=== PATIENT | male | born 1945 | race Caucasian/White ===

== ENCOUNTER 2019-12-14 13:03 | Outpatient (CLI) | payer MEDICARE, BC ==
[~2019-12-14] VITALS: Ht 185.4 cm; Wt 90.7 kg
[2019-12-14] MEDS ORDERED: IRON PO (14:15)
[2019-12-14] MEDS ORDERED: ROSU5TAB PO (14:15)
[2019-12-14] MEDS ORDERED: ESOM40CA49 PO (14:15)
[2019-12-14] MEDS ORDERED: DULO-31 PO (14:15)
[2019-12-14] MEDS ORDERED: LISI10TA4 PO (14:15)
[2019-12-14 14:45] LABS: BASOPHILS # (AUTO) 0.1 X10'3 (0-0.2); EOSINOPHILS # (AUTO) 0.1 X10'3 (0-0.9); EOSINOPHILS % (AUTO) 2.5 % (0-6); LYMPHOCYTES # (AUTO) 1.1 X10'3 (1.1-4.8); LYMPHOCYTES % (AUTO) 19.3 % (21-51); MEAN CORPUSCULAR HEMOGLOBIN 32.9 PG (27.0-31.0); MEAN CORPUSCULAR HGB CONC 34.1 g/dL (33.0-36.5); MEAN CORPUSCULAR VOLUME 96.3 FL (78-98); MEAN PLATELET VOLUME 6.9 FL (7.4-10.4); MONOCYTES # (AUTO) 0.4 X10'3 (0-0.9); MONOCYTES % (AUTO) 6.4 % (2-12); NEUTROPHILS % (AUTO) 70.8 % (42-75); PRE OP HEMATOCRIT 29.9 % (42.0-52.0); RED CELL DISTRIBUTION WIDTH 14.8 % (11.5-14.5)
[2019-12-14 14:55] LABS: PRE OP INR 1.1 INR; PRE OP PROTIME 11.8 SECONDS (9.0-12.0)
[2019-12-14 14:57] LABS: ALBUMIN 3.4 G/DL (3.4-5.0); ALBUMIN/GLOBULIN RATIO 0.8 (1.1-1.5); ALKALINE PHOSPHATASE 157 IU/L (46-116); BLOOD UREA NITROGEN 14 MG/DL (7-18); BUN/CREATININE RATIO 9.3 (5.4-32.0); CALCIUM 8.6 MG/DL (8.5-10.1); CHLORIDE 103 MMOL/L (99-107); CREATININE 1.51 MG/DL (0.60-1.10); PRE OP ALT 34 U/L (30-65); PRE OP ANION GAP 9 (8-16); PRE OP AST 49 U/L (10-37); PRE OP POTASSIUM 3.9 MMOL/L (3.4-5.1); PRE OP SODIUM 139 MMOL/L (135-145); TOTAL CARBON DIOXIDE 26.7 MMOL/L (24-32); TOTAL PROTEIN 7.7 G/DL (6.4-8.2); eGFR 45 ML/MIN
[2019-12-14 15:04] LABS: PRE OP GLUCOSE 378 MG/DL (70-104)
[2019-12-14 15:45] LABS: PRE OP HEMOGLOBIN 10.2 g/dL (14.0-17.9); PRE OP PLATELET COUNT 90 X10'3 (140-440)
[2019-12-14 16:29] LABS: HEMOGLOBIN A1C 6.7 % (4.5-6.2)
[2019-12-20] MEDS ORDERED: ringers solution, lacted 1,000 ML IV SCH (05:00)
[2019-12-20] MEDS ORDERED: famotidine 20mg tablet PO ONE (05:30)
[2019-12-20] MEDS ORDERED: tranexamic acid 1gm/0.7% sal. 100 ML IV ONE (05:30)
[2019-12-20] MEDS ORDERED: vancomycin 1,500 MG in NS 500ml IV soln IV ONE (05:30)
[2019-12-20] MEDS ORDERED: clindamycin-Cleocin 900mg/D5W 50 ML IV ONE (05:30)
[2020-01-05] MEDS ORDERED: GLIM2TAB6 PO (08:36)
== END 2019-12-14 23:59 | disposition home or self-care (01) ==
LOC: PRE-OP 13:03 → EDSTATUS 12-20 10:30
PROVIDERS: ATTEND Orthopaedic Surgery
DX: M17.11 Unilateral primary osteoarthritis, right knee (principal); M25.561 Pain in right knee; D64.9 Anemia, unspecified; I73.9 Peripheral vascular disease, unspecified; Z53.09 Procedure and treatment not carried out because of other contraindication; Z88.0 Allergy status to penicillin; Z11.59 Encounter for screening for other viral diseases
CPT/HCPCS: 36415; 80053; 83036; 85025; 85610; 85730; 86885; 86900; 86901; 86920; 87081; 87635

== ENCOUNTER 2020-01-06 10:58 | Inpatient (IN) | payer MEDICARE, BC ==
[~2020-01-06] VITALS: Ht 185.4 cm; Wt 90.7 kg
[2020-01-06] VITALS (18 sets, daily range): BP systolic 98–180; BP diastolic 52–81
[~2020-01-06 10:58] MED LIST: DULO-31 PO; ESOM40CA49 PO; GLIM2TAB6 PO; IRON PO; LISI10TA4 PO; ROSU5TAB PO; clindamycin-Cleocin 900mg/D5W 50 ML IV ONE; famotidine 20mg tablet PO ONE; ringers solution, lacted 1,000 ML IV SCH; tranexamic acid 1gm/0.7% sal. 100 ML IV ONE; vancomycin 1,500 MG in NS 500ml IV soln IV ONE
[2020-01-06] MEDS ORDERED: ceFAZolin 1000mg inj ONE (11:46)
[2020-01-06 12:50] LABS: BASOPHILS % (AUTO) 0.9 % (0-1); EOSINOPHILS # (AUTO) 0.1 X10'3 (0-0.9); EOSINOPHILS % (AUTO) 2.7 % (0-6); HEMOGLOBIN 9.4 g/dl (14.0-17.9); LYMPHOCYTES # (AUTO) 0.6 X10'3 (1.1-4.8); LYMPHOCYTES % (AUTO) 19.9 % (21-51); MEAN CORPUSCULAR HEMOGLOBIN 33.4 PG (27.0-31.0); MEAN CORPUSCULAR HGB CONC 34.7 g/dL (33.0-36.5); MEAN CORPUSCULAR VOLUME 96.4 FL (78-98); MONOCYTES # (AUTO) 0.2 X10'3 (0-0.9); MONOCYTES % (AUTO) 5.1 % (2-12); NEUTROPHILS # (AUTO) 2.3 X10'3 (1.8-7.7); NEUTROPHILS % (AUTO) 71.4 % (42-75); PLATELET COUNT 69 X10'3 (140-440); RED CELL DISTRIBUTION WIDTH 14.9 % (11.5-14.5); WHITE BLOOD COUNT 3.3 X10'3 (4.5-11.0)
[2020-01-06] MEDS ORDERED: tetracaine 1% (10mg/ml) pres. free inj. ONE (12:57)
[2020-01-06] MEDS ORDERED: MIDAZolam 5mg/5ml vial ONE (12:59)
[2020-01-06] MEDS ORDERED: fentaNYL/PF 50MCG/1 ML 2ML syringe ONE (12:59)
[2020-01-06 13:01] LABS: ALANINE AMINOTRANSFERASE 27 U/L (12-78); ALBUMIN 3.3 G/DL (3.4-5.0); ALBUMIN/GLOBULIN RATIO 0.9 (1.1-1.5); ALKALINE PHOSPHATASE 120 IU/L (46-116); ANION GAP 9 (8-16); ASPARTATE AMINO TRANSFERASE 34 U/L (10-37); BILIRUBIN,TOTAL 0.8 MG/DL (0.1-1.0); BLOOD UREA NITROGEN 15 MG/DL (7-18); BUN/CREATININE RATIO 11.2 (5.4-32.0); CALCIUM 8.7 MG/DL (8.5-10.1); CHLORIDE 109 MMOL/L (99-107); CREATININE 1.34 MG/DL (0.60-1.10); GLUCOSE 105 MG/DL (70-104); POTASSIUM 3.9 MMOL/L (3.5-5.1); SODIUM 143 MMOL/L (135-145); TOTAL CARBON DIOXIDE 24.8 MMOL/L (24-32); TOTAL PROTEIN 6.9 G/DL (6.4-8.2); eGFR 52 ML/MIN
[2020-01-06 13:08] LABS: PARTIAL THROMBOPLASTIN TIME 27 SECONDS (22-32)
[2020-01-06] MEDS ORDERED: ringers solution, lacted 1,000 ML IV SCH (13:31)
[2020-01-06] MEDS ORDERED: ondansetron/PF 4mg/2ml inj IV PRN ×2 (13:35→15:55)
[2020-01-06] MEDS ORDERED: morphine 2 MG/ML inj. syringe IV PRN (13:35)
[2020-01-06] MEDS ORDERED: ROPIVAcaine 0.2% (10 MG/5 ML) BOLUS INJECTION ADDCANAL PRN (13:35)
[2020-01-06] MEDS ORDERED: morphine 4 MG/ML inj SYRINge IV PRN (13:35)
[2020-01-06] MEDS ORDERED: meperidine/PF 25mg/ml syringe IV PRN ×3 (13:35)
[2020-01-06] MEDS ORDERED: proCHLORperazine 10 MG/2 ml inj IV PRN (13:35)
[2020-01-06] MEDS ORDERED: propofol inj 20 ML IV ONE (13:43)
[2020-01-06] MEDS ORDERED: ROPIVAcaine 0.5% (5mg/ml) 30ml vial ONE (15:33)
[2020-01-06] MEDS ORDERED: magnesium hydroxide 30ml (MOM) UD suspension PO PRN (15:55)
[2020-01-06] MEDS ORDERED: diphenhydrAMINE 25mg capsule PO PRN ×2 (15:55)
[2020-01-06] MEDS ORDERED: acetaminophen 325mg tablet PO PRN (15:55)
[2020-01-06] MEDS ORDERED: bisacodyl 10mg suppository rectal RC PRN (15:55)
--- NOTE | 2020-01-06 15:57 | NUR ---
Received from OR via , accompanied by Anesthesiologist DR WEBSTER and report given by Anesthesiolgist. AWAKENS TO VOICE. VITALS STABLE. DRESSING DI. SENSATION AT THE UMBILICUS. ANGEL WITH CLEAR URINE.
[2020-01-06] MEDS ORDERED: insulin Lispro (HumaLOG) vial - multi-dose SQ SCH (16:15)
[2020-01-06] MEDS ORDERED: glucagon, human recombinant 1mg kit SUBCUT PRN (16:15)
[2020-01-06] MEDS ORDERED: dextrose ORAL solution 15 GM/59 ML bottle PO PRN ×2 (16:15)
[2020-01-06] MEDS ORDERED: MESSAGE TO PHARMACY PO ONE (16:15)
[2020-01-06] MEDS ORDERED: dextrose 50%-water 50ml dispensing syringe IV PRN ×2 (16:15)
--- NOTE | 2020-01-06 17:17 | NUR ---
Report called to receiving nurse. Transferred via BED Belongings . Special Issues communicated to receiving nurse.AWAKE AND ORIENTED. VITALS STABLE. DRESSING DI. JEB PAIN. TO ORTHO RM [id number] AT THIS TIME.
[2020-01-06] MEDS: CLINDAmcin 900mg/NS 50ml IVPB 50 ML IV SCH ×2 (17:20→23:10)
[2020-01-06] MEDS: potassium Cl 20mEq in NS 1,000 ML IV SCH ×2 (17:20→19:40)
[2020-01-06] MEDS: aspirin 81mg tablet.DR PO SCH (17:30)
--- NOTE | 2020-01-06 17:30 | NUR ---
ASSUMED CARE, RECEIVED REPORT FROM RTOY MEDRANO. PATIENT RESTING COMFORTABLY, POST OP VS STARTED. WILL CONTINUE TO MONITOR.
--- NOTE | 2020-01-06 18:10 | NUR ---
Problems reprioritized. Patient report given, questions answered & plan of care reviewed with SYLVIE MEDRANO.
[2020-01-06] MEDS: ROPIVAcaine 0.2%/PF PUMP/bolus 550 ML ADDCANAL SCH ×2 (19:00→22:43)
[2020-01-06] MEDS: HYDROmorphone inj. 0.5 MG/0.5 ML DISP.SYRIN IV PRN ×2 (19:05→23:11)
[2020-01-06] MEDS ORDERED: vancomycin/NS 1 GM ADD-VANTAGE 250 ML IV SCH (20:00)
[2020-01-06] MEDS: HYDROcodone/acetaminophen 10/325mg tab PO PRN (20:32)
[2020-01-06] MEDS: sennosides 8.6mg tablet PO SCH (20:32)
[2020-01-06] MEDS: insulin glargine (Lantus) pen - multi-dose SQ SCH (21:00)
[2020-01-07] VITALS (14 sets, daily range): BP systolic 128–170; BP diastolic 51–77
[2020-01-07] MEDS: HYDROcodone/acetaminophen 10/325mg tab PO PRN ×4 (01:26→19:00)
--- NOTE | 2020-01-07 06:13 | NUR ---
Patient in room ORTHO 4013. I have received report from SYLVIE MEDRANO and had the opportunity to ask questions and assume patient care.
--- NOTE | 2020-01-07 06:14 | NUR ---
Problems reprioritized. Patient report given, questions answered & plan of care reviewed with MARCELA Eduardo.
--- NOTE | 2020-01-07 06:52 | NUR ---
urine was dark yellow with consolidated matter floating in urine. Addendum: 01/07/20 at 0653 by Deanne SAL Amended: Links added.
--- NOTE | 2020-01-07 06:55 | NUR ---
up for PT Addendum: 01/07/20 at 0656 by Deanne SAL Amended: Links added.
[2020-01-07 06:56] LABS: BASOPHILS % (AUTO) 0.7 % (0-1); EOSINOPHILS # (AUTO) 0.1 X10'3 (0-0.9); EOSINOPHILS % (AUTO) 2.3 % (0-6); HEMOGLOBIN 7.3 g/dl (14.0-17.9); LYMPHOCYTES # (AUTO) 0.6 X10'3 (1.1-4.8); LYMPHOCYTES % (AUTO) 14.4 % (21-51); MEAN CORPUSCULAR HGB CONC 34.8 g/dL (33.0-36.5); MEAN CORPUSCULAR VOLUME 97.7 FL (78-98); MEAN PLATELET VOLUME 7.4 FL (7.4-10.4); MONOCYTES # (AUTO) 0.3 X10'3 (0-0.9); MONOCYTES % (AUTO) 8.2 % (2-12); NEUTROPHILS # (AUTO) 3.2 X10'3 (1.8-7.7); NEUTROPHILS % (AUTO) 74.4 % (42-75); PLATELET COUNT 65 X10'3 (140-440); RED BLOOD COUNT 2.16 X10'6 (4.70-6.10); RED CELL DISTRIBUTION WIDTH 14.7 % (11.5-14.5); WHITE BLOOD COUNT 4.2 X10'3 (4.5-11.0)
[2020-01-07 07:04] LABS: HEMATOCRIT 21.1 % (42.0-52.0)
[2020-01-07 07:27] LABS: ANION GAP 8 (8-16); CHLORIDE 108 MMOL/L (99-107); SODIUM 141 MMOL/L (135-145); TOTAL CARBON DIOXIDE 24.6 MMOL/L (24-32)
[2020-01-07] MEDS: duloxetine 30mg CAPSULE.DR PO SCH (07:39)
[2020-01-07] MEDS: aspirin 81mg tablet.DR PO SCH ×2 (07:40→17:16)
[2020-01-07] MEDS: pantoprazole 40mg Tablet.DR PO SCH (07:40)
[2020-01-07] MEDS: lisinopril 10 MG tablet PO SCH ×2 (07:43→12:03)
[2020-01-07] MEDS: potassium Cl 20mEq in NS 1,000 ML IV SCH (07:44)
[2020-01-07] MEDS: CLINDAmcin 900mg/NS 50ml IVPB 50 ML IV SCH (07:45)
[2020-01-07] MEDS: HYDROmorphone inj. 0.5 MG/0.5 ML DISP.SYRIN IV PRN (07:47)
--- NOTE | 2020-01-07 12:44 | NUR ---
Patient requested to walk. Patient was walked down way [address] and back to bed. Elevated heels and applied SCD's. Addendum: 01/07/20 at 1246 by Deanne SAL Amended: Links added.
--- NOTE | 2020-01-07 18:06 | NUR ---
Problems reprioritized. Patient report given, questions answered & plan of care reviewed with SYLVIE MEDRANO.
[2020-01-07] MEDS: sennosides 8.6mg tablet PO SCH (20:56)
[2020-01-07] MEDS: insulin glargine (Lantus) pen - multi-dose SQ SCH (20:56)
--- NOTE | 2020-01-08 00:37 | NUR ---
Problems reprioritized. Patient report given, questions answered & plan of care reviewed with MARCELA Cao.
--- NOTE | 2020-01-08 00:37 | NUR ---
Patient in room ORTHO 4013. I have received report from MARCELA Hernandez and had the opportunity to ask questions and assume patient care.
[2020-01-08] MEDS: HYDROcodone/acetaminophen 10/325mg tab PO PRN ×4 (00:38→20:33)
[2020-01-08] MEDS: potassium Cl 20mEq in NS 1,000 ML IV SCH ×2 (02:22→15:27)
[2020-01-08 06:00] VITALS: BP 121/58
--- NOTE | 2020-01-08 06:00 | NUR ---
Patient in room ORTHO 4013. I have received report from Kiley and had the opportunity to ask questions and assume patient care.
--- NOTE | 2020-01-08 06:27 | NUR ---
Problems reprioritized. Patient report given, questions answered & plan of care reviewed with MARCELA Dhillon.
[2020-01-08 06:29] LABS: BASOPHILS % (AUTO) 0.7 % (0-1); EOSINOPHILS # (AUTO) 0.1 X10'3 (0-0.9); EOSINOPHILS % (AUTO) 2.1 % (0-6); HEMATOCRIT 25.5 % (42.0-52.0); HEMOGLOBIN 8.9 g/dl (14.0-17.9); LYMPHOCYTES # (AUTO) 0.9 X10'3 (1.1-4.8); LYMPHOCYTES % (AUTO) 18.5 % (21-51); MEAN CORPUSCULAR HEMOGLOBIN 33.1 PG (27.0-31.0); MEAN CORPUSCULAR HGB CONC 34.8 g/dL (33.0-36.5); MEAN CORPUSCULAR VOLUME 95.2 FL (78-98); MEAN PLATELET VOLUME 7.1 FL (7.4-10.4); MONOCYTES # (AUTO) 0.5 X10'3 (0-0.9); MONOCYTES % (AUTO) 9.8 % (2-12); NEUTROPHILS # (AUTO) 3.5 X10'3 (1.8-7.7); NEUTROPHILS % (AUTO) 68.9 % (42-75); PLATELET COUNT 54 X10'3 (140-440); RED BLOOD COUNT 2.68 X10'6 (4.70-6.10); RED CELL DISTRIBUTION WIDTH 15.2 % (11.5-14.5)
[2020-01-08 06:59] LABS: CREATININE 1.16 MG/DL (0.60-1.10); eGFR 62 ML/MIN
[2020-01-08 07:24] LABS: PLATELET ESTIMATE DECREASED
[2020-01-08] MEDS: duloxetine 30mg CAPSULE.DR PO SCH (07:34)
[2020-01-08] MEDS: pantoprazole 40mg Tablet.DR PO SCH (07:34)
[2020-01-08] MEDS: aspirin 81mg tablet.DR PO SCH ×2 (07:34→17:30)
[2020-01-08] MEDS: lisinopril 10 MG tablet PO SCH (07:38)
[2020-01-08 10:48] VITALS: BP 105/83
--- NOTE | 2020-01-08 14:30 | NUR ---
Problems reprioritized. Patient report given, questions answered & plan of care reviewed with Jennifer.
[2020-01-08 15:30] VITALS: BP 161/75
[2020-01-08] MEDS: ROPIVAcaine 0.2%/PF PUMP/bolus 550 ML ADDCANAL SCH (16:33)
--- NOTE | 2020-01-08 18:05 | NUR ---
Problems reprioritized. Patient report given, questions answered & plan of care reviewed with DENNIS MEDRANO.
--- NOTE | 2020-01-08 18:33 | NUR ---
Patient in room [facility] 346. I have received report from Alesha MEDRANO and had the opportunity to ask questions and assume patient care.
[2020-01-08 20:00] VITALS: BP 147/68
[2020-01-08] MEDS: sennosides 8.6mg tablet PO SCH (20:32)
[2020-01-08] MEDS: insulin glargine (Lantus) pen - multi-dose SQ SCH (21:00)
[2020-01-09] VITALS: BP 136/64
[2020-01-09 05:12] LABS: BASOPHILS % (AUTO) 0.4 % (0-1); EOSINOPHILS # (AUTO) 0.1 X10'3 (0-0.9); HEMATOCRIT 25.2 % (42.0-52.0); HEMOGLOBIN 8.6 g/dl (14.0-17.9); LYMPHOCYTES # (AUTO) 0.8 X10'3 (1.1-4.8); LYMPHOCYTES % (AUTO) 16.4 % (21-51); MEAN CORPUSCULAR HGB CONC 34.3 g/dL (33.0-36.5); MEAN CORPUSCULAR VOLUME 96.3 FL (78-98); MEAN PLATELET VOLUME 7.5 FL (7.4-10.4); MONOCYTES # (AUTO) 0.4 X10'3 (0-0.9); MONOCYTES % (AUTO) 8.5 % (2-12); NEUTROPHILS # (AUTO) 3.4 X10'3 (1.8-7.7); NEUTROPHILS % (AUTO) 72.7 % (42-75); PLATELET COUNT 53 X10'3 (140-440); RED BLOOD COUNT 2.62 X10'6 (4.70-6.10); RED CELL DISTRIBUTION WIDTH 14.6 % (11.5-14.5); WHITE BLOOD COUNT 4.7 X10'3 (4.5-11.0)
--- NOTE | 2020-01-09 06:16 | NUR ---
Problems reprioritized. Patient report given, questions answered & plan of care reviewed with DIANE MEDRANO.
--- NOTE | 2020-01-09 06:44 | NUR ---
Patient in room [facility] 346. I have received report from Isadora MEDRANO and had the opportunity to ask questions and assume patient care.
[2020-01-09 07:28] VITALS: BP 129/64
[2020-01-09 07:48] VITALS: BP 129/46
[2020-01-09] MEDS: pantoprazole 40mg Tablet.DR PO SCH (09:13)
[2020-01-09] MEDS: aspirin 81mg tablet.DR PO SCH (09:13)
[2020-01-09] MEDS: duloxetine 30mg CAPSULE.DR PO SCH (09:14)
[2020-01-09] MEDS: lisinopril 10 MG tablet PO SCH (09:14)
[2020-01-09 12:28] VITALS: BP 117/76
--- NOTE | 2020-01-09 12:58 | NUR ---
F/u: Pt aware of new DM DX and pending discharge today per RN. Pt seen by RD for written/verbal DM ed w/ RD contact information provided. Pt reports not knowing exact diet guidelines but also refused verbal ed at this time. RD encouraged pt to contact dietitian's office if further questions. Addendum: 01/09/20 at [address] Amended: Links added.
--- NOTE | 2020-01-09 13:17 | NUR ---
Patient discharged on nursing end. All discharge education completed. Patient has an appointment for follow up on Friday.
--- NOTE | 2020-01-09 13:47 | NUR ---
Patient discharged, taken out by by staff member to lobby. Scrip in DC folder to fill at pharmacy. Patient VS stable. Patient able to walk with FWW SBA, No issues and tolerated well. All education completed with patient. Patient has appointment to follow up on Friday.
== END 2020-01-09 14:00 | disposition home or self-care (01) | DRG 470 ==
LOC: UNDOADMIN 10:58 → PAS IN 10:58 → EDSTATUS 14:00 → PAS IN 15:53 → ORTHO 4S 17:30 → PAS IN 17:30 → SUR 3N 01-08 15:26
PROVIDERS: ADMIT Orthopaedic Surgery; ATTEND Orthopaedic Surgery
PROC: 3E0T3BZ Introduction of Anesthetic Agent into Peripheral Nerves and Plexi, Percutaneous Approach (ICD-10-PCS; 2020-01-06)
PROC: 0SRC069 Replacement of Right Knee Joint with Oxidized Zirconium on Polyethylene Synthetic Substitute, Cemented, Open Approach (ICD-10-PCS; principal; 2020-01-06 12:52)
PROC: 30233N1 Transfusion of Nonautologous Red Blood Cells into Peripheral Vein, Percutaneous Approach (ICD-10-PCS; 2020-01-07)
DX: M17.11 Unilateral primary osteoarthritis, right knee (principal); D62 Acute posthemorrhagic anemia; I10 Essential (primary) hypertension; E11.9 Type 2 diabetes mellitus without complications; J44.9 Chronic obstructive pulmonary disease, unspecified; F32.9 Major depressive disorder, single episode, unspecified; K21.9 Gastro-esophageal reflux disease without esophagitis; Z88.0 Allergy status to penicillin
CPT/HCPCS: 36415; 36430; 80051; 80053; 82565; 82948; 85025; 85610; 85730; 86885; 86900; 86901; 86920; 97116; 97161; 97530; A6455; A7000; C1713; C1758; C1776; G0378; J0690; J1170; J1815; J2250; J2704; J2795; J3010; J3370; J3480; J3490; J7040; J7120; P9016